=== PATIENT | female | born 1960 | race Caucasian/White ===

== ENCOUNTER 2016-11-19 10:48 | Emergency (ER) | payer BC ==
[~2016-11-19] VITALS: Ht 167.6 cm; Wt 89.0 kg
[~2016-11-19 10:48] MED LIST: ASPI81TA82 PO; ATOR10 PO
[2016-11-19 10:53] VITALS: BP 130/86; PULSE 110; RESP 16; TEMP 98.1; O2SAT 96
[2016-11-19] MEDS ORDERED: ASPI325T PO (11:05)
[2016-11-19 11:27] LABS: BLOOD, URINE TRACE (NEG); GLUCOSE,URINE NEG (NEG); KETONE, URINE NEG (NEG); METHOD OF COLLECTION CLEAN CATCH; NITRITE,URINE NEG (NEG); URINE COLOR YELLOW (YELLW/STRAW)
[2016-11-19 11:31] LABS: COMMENT (UR) CULT NOT INDICATED; CULTURE IF INDICATED CULT NOT INDICATED; SQUAMOUS EPITHELIAL CELL URINE 0-5 /hpf (0-5); WBC, URINE 0-2 /hpf (0-5)
[2016-11-19] MEDS ORDERED: MECL-62 PO (11:44)
[2016-11-19] MEDS ORDERED: ZOFR4TAB PO (11:44)
--- NOTE | 2016-11-19 11:44 | PD ---
HPI Chief Complaint: Abdominal Pain Time Seen by Provider: 11:15 Travel History International Travel<30 days: No Contact w/Intl Traveler<30days: No Traveled to known affect area: No History of Present Illness HPI Patient presents with complaints of dizziness. States that for the last 3 nights she is sitting and watching TV when she started to feel a little lightheaded she then goes to lay down and throws up and then feels fine. Does not occur during the day. Denies any urinary or bowel symptoms. Denies any room spinning with head movement. Denies any fever. PFSH Past Medical History Hx Anticoagulant Therapy: Yes (81 MG ASA) Arthritis: No Asthma: No Autoimmune Disease: No Heart Rhythm Problems: No Cancer: No Cardiovascular Problems: Yes (STENT) Chest Pain: Yes (09/08) Congestive Heart Failure: No COPD: No Cerebrovascular Accident: No Diabetes: No Diminished Hearing: No Endocrine: No Genitourinary: No Immune Disorder: No Musculoskeletal: No Neurologic: No Psychiatric: No Reproductive: No Respiratory: No Migraines: No Seizures: No Sleep Apnea: No Thyroid Disease: No Past Surgical History Abdominal Surgery: No AICD: No Arteriovenous Shunt: No Cardiac Surgery: Yes (LAD stent) Ear Surgery: No Endocrine Surgery: No Eye Surgery: No Genitourinary Surgery: No Gynecologic Surgery: Yes (hysterectomy) Hysterectomy: Yes Insulin Pump: No Joint Replacement: No Oral Surgery: No Pacemaker: No Thoracic Surgery: No Other Surgery: Yes (TUBAL) Social History Alcohol Use: Yes (RARELY) Tobacco Use: Yes Substance Use: No Allergies-Medications (Allergen,Severity, Reaction): Coded Allergies: No Known Allergies (Unverified , 11/19/16) Reported Meds & Prescriptions Reported Meds & Active Scripts Active Reported Aspirin 325 Mg Tab 325 Mg PO DAILY Review of Systems General / Constitutional: No: Fever Eyes: No: Visual changes HENT: No: Headaches Cardiovascular: No: Chest Pain or Discomfort Respiratory: No: Shortness of Breath Gastrointestinal: Positive: Nausea, Vomiting, No: Abdominal Pain Genitourinary: No: Dysuria Musculoskeletal: No: Pain Skin: No Rash Neurologic: No: Weakness Psychiatric: No: Depression Endocrine: No: Polydipsia Hematologic/Lymphatic: No: Easy Bruising Physical Exam Narrative GENERAL: Well-nourished, well-developed patient. SKIN: Focused skin assessment warm/dry. HEAD: Normocephalic. EYES: No scleral icterus. No injection or drainage. NECK: Supple, trachea midline. No JVD or lymphadenopathy. CARDIOVASCULAR: Regular rate and rhythm without murmurs, gallops, or rubs. RESPIRATORY: Breath sounds equal bilaterally. No accessory muscle use. GASTROINTESTINAL: Abdomen soft, non-tender, nondistended. MUSCULOSKELETAL: No cyanosis, or edema. BACK: Nontender without obvious deformity. No CVA tenderness. Data Data Last Documented VS Vital Signs Date Time Temp Pulse Resp B/P Pulse Ox O2 Delivery O2 Flow Rate FiO2 11/19/16 10:53 98.1 110 16 130/86 96 Orders Urinalysis - C+S If Indicated (11/19/16 11:15) Complete Blood Count With Diff (11/19/16 11:34) Comprehensive Metabolic Panel (11/19/16 11:34) Lipase (11/19/16 11:34) Lactic Acid (11/19/16 11:34) Ct Abd/Pel W Iv Contrast(Rout) (11/19/16 11:34) Iv Access Insert/Monitor (11/19/16 11:34) Ecg Monitoring (11/19/16 11:34) Oximetry (11/19/16 11:34) NPO (11/19/16 11:34) Ondansetron Inj (Zofran Inj) (11/19/16 11:45) Sodium Chloride 0.9% Flush (Ns Flush) (11/19/16 11:45) Labs Laboratory Tests Test 11/19/16 11:15 Urine Collection Type CLEAN CATCH Urine Color YELLOW Urine Turbidity CLEAR Urine pH 6.0 Urine Specific [place] 1.019 Urine Protein NEG mg/dL Urine Glucose (UA) NEG mg/dL Urine Ketones NEG mg/dL Urine Occult Blood TRACE Urine Nitrite NEG Urine Bilirubin NEG Urine Leukocyte Esterase NEG Urine WBC 0-2 /hpf Urine Squamous Epithelial 0-5 /hpf Cells Urine Amorphous Sediment FEW Microscopic Urinalysis Comment CULT NOT INDICATED MDM Medical Decision Making Medical Screen Exam Complete: Yes Emergency Medical Condition: Yes Differential Diagnosis Vertigo, gastritis, reflux, hypoglycemia Narrative Course Assessment and plan discussed with patient and partner at bedside. EKG normal sinus rhythm. Diagnosis Primary Impression: Vertigo Patient Instructions: General Instructions Additional Instructions: Encouraged a bland BRAT diet. Encourage good fluid intake. Follow-up with PCP Med/Other Pt SpecificInfo: Prescription(s) given Scripts Ondansetron (Zofran)4 Mg Tab4 Mg PO Q12HR PRN (NAUSEA OR VOMITING) #10 TAB Ref 0 Prov:Jovanny Cherry MD 11/19/16 Meclizine 25 Mg Tab25 Mg PO DIRECTED PRN (VERTIGO) #20 TAB Ref 0 Prov:Jovanny Cherry MD 11/19/16 Disposition: 01 DISCHARGE HOME Condition: Good Jovanny Cherry MD Nov 19, 2016 11:44
[2016-11-19] MEDS ORDERED: ONDANSETRON HCL 4 MG/2 ML VIAL IVP ONE (11:45)
[2016-11-19] MEDS ORDERED: SODIUM CHLORIDE 0.9% FLUSH 10 ML FLUSH IV FLUSH PRN (11:45)
[2016-11-19 11:51] VITALS: O2SAT 96
[2016-11-19 11:54] VITALS: BP 108/71; PULSE 83; RESP 20; O2SAT 98
--- NOTE | 2016-11-19 11:54 | PD ---
HPI Chief Complaint: Abdominal Pain Time Seen by Provider: 11:15 Travel History International Travel<30 days: No Contact w/Intl Traveler<30days: No Traveled to known affect area: No History of Present Illness HPI Patient presents with complaints of right lower abdominal pain intermittent over the last week. Pain varies from a 5-8 out of 10. Episodes last for 15-20 minutes. Occur randomly. Denies any nausea vomiting diarrhea or fever. States that the symptoms improved with urination. History of complete hysterectomy. Reports normal stools and normal urination. PFSH Past Medical History Hx Anticoagulant Therapy: Yes (81 MG ASA) Arthritis: No Asthma: No Autoimmune Disease: No Heart Rhythm Problems: No Cancer: No Cardiovascular Problems: Yes (STENT) Chest Pain: Yes (09/08) Congestive Heart Failure: No COPD: No Cerebrovascular Accident: No Diabetes: No Diminished Hearing: No Endocrine: No Genitourinary: No Immune Disorder: No Musculoskeletal: No Neurologic: No Psychiatric: No Reproductive: No Respiratory: No Migraines: No Seizures: No Sleep Apnea: No Thyroid Disease: No Past Surgical History Abdominal Surgery: No AICD: No Arteriovenous Shunt: No Cardiac Surgery: Yes (LAD stent) Ear Surgery: No Endocrine Surgery: No Eye Surgery: No Genitourinary Surgery: No Gynecologic Surgery: Yes (hysterectomy) Hysterectomy: Yes Insulin Pump: No Joint Replacement: No Oral Surgery: No Pacemaker: No Thoracic Surgery: No Other Surgery: Yes (TUBAL) Social History Alcohol Use: Yes (RARELY) Tobacco Use: Yes Substance Use: No Allergies-Medications (Allergen,Severity, Reaction): Coded Allergies: No Known Allergies (Unverified , 11/19/16) Reported Meds & Prescriptions Reported Meds & Active Scripts Active Zofran (Ondansetron HCl) 4 Mg Tab 4 Mg PO Q12HR PRN Meclizine (Meclizine HCl) 25 Mg Tab 25 Mg PO DIRECTED PRN Reported Aspirin 325 Mg Tab 325 Mg PO DAILY Review of Systems General / Constitutional: No: Fever Eyes: No: Visual changes HENT: No: Headaches Cardiovascular: No: Chest Pain or Discomfort Respiratory: No: Shortness of Breath Gastrointestinal: Positive: Abdominal Pain Genitourinary: No: Dysuria Musculoskeletal: No: Pain Skin: No Rash Neurologic: No: Weakness Psychiatric: No: Depression Endocrine: No: Polydipsia Hematologic/Lymphatic: No: Easy Bruising Physical Exam Narrative GENERAL: Well-nourished, well-developed patient. SKIN: Focused skin assessment warm/dry. HEAD: Normocephalic. EYES: No scleral icterus. No injection or drainage. NECK: Supple, trachea midline. No JVD or lymphadenopathy. CARDIOVASCULAR: Regular rate and rhythm without murmurs, gallops, or rubs. RESPIRATORY: Breath sounds equal bilaterally. No accessory muscle use. GASTROINTESTINAL: Abdomen soft, tender right lower quadrant, nondistended. MUSCULOSKELETAL: No cyanosis, or edema. BACK: Nontender without obvious deformity. No CVA tenderness. Data Data Last Documented VS Vital Signs Date Time Temp Pulse Resp B/P Pulse Ox O2 Delivery O2 Flow Rate FiO2 11/19/16 11:54 83 20 108/71 98 11/19/16 10:53 98.1 Orders Urinalysis - C+S If Indicated (11/19/16 11:15) Complete Blood Count With Diff (11/19/16 11:34) Comprehensive Metabolic Panel (11/19/16 11:34) Lipase (11/19/16 11:34) Lactic Acid (11/19/16 11:34) Ct Abd/Pel W Iv Contrast(Rout) (11/19/16 11:34) Iv Access Insert/Monitor (11/19/16 11:34) Ecg Monitoring (11/19/16 11:34) Oximetry (11/19/16 11:34) NPO (11/19/16 11:34) Ondansetron Inj (Zofran Inj) (11/19/16 11:45) Sodium Chloride 0.9% Flush (Ns Flush) (11/19/16 11:45) Iohexol 350 Inj (Omnipaque 350 Inj) (11/19/16 12:05) Labs Laboratory Tests Test 11/19/16 11/19/16 11:15 11:40 Urine Collection Type CLEAN CATCH Urine Color YELLOW Urine Turbidity CLEAR Urine pH 6.0 Urine Specific [place] 1.019 Urine Protein NEG mg/dL Urine Glucose (UA) NEG mg/dL Urine Ketones NEG mg/dL Urine Occult Blood TRACE Urine Nitrite NEG Urine Bilirubin NEG Urine Leukocyte Esterase NEG Urine WBC 0-2 /hpf Urine Squamous Epithelial 0-5 /hpf Cells Urine Amorphous Sediment FEW Microscopic Urinalysis Comment CULT NOT INDICATED White Blood Count 7.4 TH/MM3 Red Blood Count 4.60 MIL/MM3 Hemoglobin 14.3 GM/DL Hematocrit 42.3 % Mean Corpuscular Volume 91.8 FL Mean Corpuscular Hemoglobin 31.1 PG Mean Corpuscular Hemoglobin 33.8 % Concent Red Cell Distribution Width 12.5 % Platelet Count 234 TH/MM3 Mean Platelet Volume 8.7 FL Neutrophils (%) (Auto) 52.4 % Lymphocytes (%) (Auto) 36.2 % Monocytes (%) (Auto) 4.6 % Eosinophils (%) (Auto) 4.9 % Basophils (%) (Auto) 1.9 % Neutrophils # (Auto) 3.9 TH/MM3 Lymphocytes # (Auto) 2.7 TH/MM3 Monocytes # (Auto) 0.3 TH/MM3 Eosinophils # (Auto) 0.4 TH/MM3 Basophils # (Auto) 0.1 TH/MM3 CBC Comment DIFF FINAL Differential Comment Sodium Level 143 MEQ/L Potassium Level 4.0 MEQ/L Chloride Level 108 MEQ/L Carbon Dioxide Level 28.2 MEQ/L Anion Gap 7 MEQ/L Blood Urea Nitrogen 12 MG/DL Creatinine 0.63 MG/DL Estimat Glomerular Filtration 97 ML/MIN Rate Random Glucose 116 MG/DL Lactic Acid Level 1.3 mmol/L Calcium Level 8.8 MG/DL Total Bilirubin 0.3 MG/DL Aspartate Amino Transf 17 U/L (AST/SGOT) Alanine Aminotransferase 25 U/L (ALT/SGPT) Alkaline Phosphatase 32 U/L Total Protein 7.0 GM/DL Albumin 3.4 GM/DL Lipase 130 U/L MDM Medical Decision Making Medical Screen Exam Complete: Yes Emergency Medical Condition: Yes Differential Diagnosis Appendicitis, adhesions, urinary tract infection, nephrolithiasis Narrative Course Assessment and plan discussed with patient at bedside Last 72 hours Impressions Abdomen/Pelvis CT 11/19/16 1134 Signed Impressions: Service Date/Time: Saturday, November 19, 2016 11:55 - CONCLUSION: 1. Possible right lower quadrant pain is not seen. 2. Multiple calcifications in the pelvis thought to be related to phleboliths. A definite ureteral stone is not clearly confirmed. There are several calcifications seen around the distal ureters bilaterally. There is no hydronephrosis. No renal stones are seen. Godwin Ojeda MD Diagnosis Primary Impression: Hematuria Additional Impression: Abdominal pain Qualified Code: R10.31 - Right lower quadrant abdominal pain Patient Instructions: General Instructions Additional Instructions: Encourage fluids, encouraged cranberry supplement, follow-up with PCP Med/Other Pt SpecificInfo: Prescription(s) given Scripts Ciprofloxacin (Cipro)500 Mg Xmd563 Mg PO BID 5 Days Ref 0 Prov:Jovanny Cherry MD 11/19/16 Disposition: 01 DISCHARGE HOME Condition: Good Jovanny Cherry MD Nov 19, 2016 11:54
[2016-11-19 11:55] LABS: AUTOMATED NEUTROPHIL # 3.9 TH/MM3 (1.8-7.7); BASOPHIL # 0.1 TH/MM3 (0-0.2); BASOPHIL % 1.9 % (0.0-2.0); EOSINOPHIL # 0.4 TH/MM3 (0-0.4); EOSINOPHIL % 4.9 % (0.0-4.0); HEMATOCRIT 42.3 % (35.0-46.0); HEMO FLAGS DIFF FINAL; LYMPH % 36.2 % (9.0-44.0); LYMPHOCYTE # 2.7 TH/MM3 (1.0-4.8); MEAN CELL VOLUME 91.8 FL (80.0-100.0); MEAN CORPUSCULAR HEMOGLOBIN 31.1 PG (27.0-34.0); MEAN CORPUSCULAR HGB CONC 33.8 % (32.0-36.0); MONO % 4.6 % (0.0-8.0); NEUT % 52.4 % (16.0-70.0); PLATELET COUNT 234 TH/MM3 (150-450); RED CELL DISTRIBUTION WIDTH 12.5 % (11.6-17.2); WHITE BLOOD COUNT 7.4 TH/MM3 (4.0-11.0)
[2016-11-19 12:03] LABS: CHLORIDE 108 MEQ/L (98-107); SODIUM (NA) 143 MEQ/L (136-145)
[2016-11-19] MEDS ORDERED: IOHEXOL 350 MG/ML 10 ML VIAL (for RAD DIAG) IV ONE (12:05)
[2016-11-19 12:07] LABS: ANION GAP 7 MEQ/L (5-15); BICARBONATE 28.2 MEQ/L (21.0-32.0); BLOOD UREA NITROGEN 12 MG/DL (7-18)
[2016-11-19 12:10] LABS: ALT (GPT) 25 U/L (10-53); AST (GOT) 17 U/L (15-37); GLOMERULAR FILTRATION RATE 97 ML/MIN (>89)
[2016-11-19 12:11] LABS: TOTAL BILIRUBIN ADULT 0.3 MG/DL (0.2-1.0)
[2016-11-19 12:13] LABS: ALKALINE PHOSPHATASE 32 U/L (45-117)
--- NOTE | 2016-11-19 12:56 | RADHPO ---
EXAM DATE/TIME: 11/19/2016 11:55 [facility] COMPARISON: No previous studies available for comparison. INDICATIONS : Intermittent right lower quadrant pain for two weeks. IV CONTRAST: 95 cc Omnipaque 350 (iohexol) IV ORAL CONTRAST: No oral contrast ingested. RADIATION DOSE: 19.49 CTDIvol (mGy) MEDICAL HISTORY : Cardiovascular disease Anticoagulant therapy. SURGICAL HISTORY : Tubal ligation. Hysterectomy.Coronary artery stent. ENCOUNTER: Initial ACUITY: 2 weeks PAIN SCALE: 5/10 LOCATION: Right lower quadrant TECHNIQUE: Volumetric scanning of the abdomen and pelvis was performed. Using automated exposure control and ad justment of the mA and/or kV according to patient size, radiation dose was kept as low as reasonably achievable to obtain optimal diagnostic quality images. FINDINGS: LOWER LUNGS: The visualized lower lungs are clear. LIVER: Homogeneous density without lesion. There is no dilation of the biliary tree. No calcified gallston es. SPLEEN: Normal size without lesion. PANCREAS: Within normal limits. KIDNEYS: Normal in size and shape. There is no mass, renal stone or hydronephrosis. There are several calcifi cations in the pelvis likely related to phleboliths. A definite ureteral stone is not clearly seen al though several calcifications are seen in close proximity to the expected location of the distal uret ers. The ureters do not appear distended. ADRENAL GLANDS: Within normal limits. VASCULAR: There is no aortic aneurysm. BOWEL/MESENTERY: The stomach, small bowel, and colon demonstrate no acute abnormality. There is no free intraperitone al air or fluid. The cecum and terminal ileum appear normal. The appendix is not seen. Significant in flammatory change is not seen. ABDOMINAL WALL: Within normal limits. RETROPERITONEUM: There is no lymphadenopathy. BLADDER: No wall thickening or mass. REPRODUCTIVE: The patient is status post hysterectomy. INGUINAL: There is no lymphadenopathy or hernia. MUSCULOSKELETAL: There is degenerative change of the lumbar spine. CONCLUSION: 1. Possible right lower quadrant pain is not seen. 2. Multiple calcifications in the pelvis thought to be related to phleboliths. A definite ureteral st one is not clearly confirmed. There are several calcifications seen around the distal ureters bilater ally. There is no hydronephrosis. No renal stones are seen. Godwin Ojeda MD on November 19, 2016 at 12:48 Board Certified Radiologist. This report was verified electronically.
[2016-11-19] MEDS ORDERED: CIPR-9 PO (13:11)
[2016-11-19 13:22] VITALS: BP 108/71
== END 2016-11-19 13:27 | disposition home or self-care (01) ==
LOC: PHED 10:48
DX: R10.31 Right lower quadrant pain (principal); R31.9 Hematuria, unspecified; Z79.82 Long term (current) use of aspirin; Z95.5 Presence of coronary angioplasty implant and graft; Z72.0 Tobacco use
CPT/HCPCS: 74177; 80053; 81001; 83605; 83690; 85025; 96374; 99284; J2405; Q9967

== ENCOUNTER 2016-12-31 12:24 | Emergency (ER) | payer BC ==
[~2016-12-31] VITALS: Ht 167.6 cm; Wt 87.0 kg
[~2016-12-31 12:24] MED LIST changes: +ASPI325T PO; -ASPI81TA82 PO; -ATOR10 PO; +CIPR-9 PO
[2016-12-31 12:31] VITALS: BP 138/94; PULSE 105; RESP 18; TEMP 98.2; O2SAT 96
--- NOTE | 2016-12-31 12:41 | PD ---
HPI Chief Complaint: Musculoskeletal Complaint Time Seen by Provider: 12:39 Travel History International Travel<30 days: No Contact w/Intl Traveler<30days: No Traveled to known affect area: No History of Present Illness HPI SLIPPED AND FELL BACKWARDS TO AVOID HITTING HER HEAD, SHE PLACED HER RIGHT ARM BACKWARDS TO BRACE HER FALL...SINCE THEN RIGHT WRIST PAIN PFSH Past Medical History Hx Anticoagulant Therapy: Yes (aspirin) Arthritis: No Asthma: No Autoimmune Disease: No Heart Rhythm Problems: No Cancer: No Cardiovascular Problems: Yes (stent) Chest Pain: Yes (09/08) Congestive Heart Failure: No COPD: No Cerebrovascular Accident: No Diabetes: No Diminished Hearing: No Endocrine: No Genitourinary: No Immune Disorder: No Musculoskeletal: No Neurologic: No Psychiatric: No Reproductive: No Respiratory: No Migraines: No Seizures: No Sleep Apnea: No Thyroid Disease: No ?: Not Past Surgical History Abdominal Surgery: No AICD: No Arteriovenous Shunt: No Cardiac Surgery: Yes (LAD stent) Ear Surgery: No Endocrine Surgery: No Eye Surgery: No Genitourinary Surgery: No Gynecologic Surgery: Yes (hysterectomy) Hysterectomy: Yes Insulin Pump: No Joint Replacement: No Oral Surgery: No Pacemaker: No Thoracic Surgery: No Other Surgery: Yes (TUBAL) Social History Alcohol Use: Yes (RARELY) Tobacco Use: Yes Substance Use: No Allergies-Medications (Allergen,Severity, Reaction): Coded Allergies: No Known Allergies (Unverified , 12/31/16) Reported Meds & Prescriptions Reported Meds & Active Scripts Active Reported Aspirin 325 Mg Tab 325 Mg PO DAILY Review of Systems Except as stated in HPI: all other systems reviewed are Neg Musculoskeletal: Positive: Limited ROM, Pain (RIGHT WRIST PAIN SINCE [facility] ) Physical Exam Narrative GENERAL: SKIN: Warm and dry. HEAD: Atraumatic. Normocephalic. EYES: Pupils equal and round. No scleral icterus. No injection or drainage. ENT: No nasal bleeding or discharge. Mucous membranes pink and moist. NECK: Trachea midline. No JVD. CARDIOVASCULAR: Regular rate and rhythm. RESPIRATORY: No accessory muscle use. Clear to auscultation. Breath sounds equal bilaterally. GASTROINTESTINAL: Abdomen soft, non-tender, nondistended. Hepatic and splenic margins not palpable. MUSCULOSKELETAL: Extremities without clubbing, cyanosis, or edema. MINIMAL EDEMA AND TTP TO RIGHT WRIST, NO HUMERUS/SHOULDER/ELBOW INVOLVEMENT NEUROLOGICAL: Awake and alert. No obvious cranial nerve deficits. Motor grossly within normal limits. Five out of 5 muscle strength in the arms and legs. Normal speech. PSYCHIATRIC: Appropriate mood and affect; insight and judgment normal. Data Data Last Documented VS Vital Signs Date Time Temp Pulse Resp B/P Pulse Ox O2 Delivery O2 Flow Rate FiO2 12/31/16 12:31 98.2 105 18 138/94 96 Orders Wrist, Complete ([id number]) (12/31/16 ) [facility] Medical Decision Making Medical Screen Exam Complete: Yes Emergency Medical Condition: Yes Medical Record Reviewed: Yes Differential Diagnosis FX VS CONTUSION Narrative Course SEE ABOVE Diagnosis Primary Impression: Distal radius fracture, right Qualified Code: S52.591A - Other closed fracture of distal end of right radius , initial encounter Referrals: Bennett Jang MD FOR FURTHER CARE OF YOUR DISTAL RADIUS FRACTURE Scripts Oxycodone-Acetaminophen (Percocet)5-325 mg Tab1 Tab PO Q4H PRN (PAIN) #28 TAB Ref 0 Prov:Kaveh Currie MD 12/31/16 Disposition: 01 DISCHARGE HOME Condition: Stable Kaveh Currie MD Dec 31, 2016 12:41
[2016-12-31] MEDS ORDERED: PERC5TAB12 PO (13:39)
[2016-12-31] MEDS ORDERED: oxyCODONE/ACETAMINOPHEN 5 MG/325 MG TAB PO ONE (13:45)
--- NOTE | 2016-12-31 14:00 | RADHPO ---
EXAM DATE/TIME: 12/31/2016 13:09 [facility] COMPARISON: No previous studies available for comparison. INDICATIONS : Fell of right wrist today MEDICAL HISTORY : None. SURGICAL HISTORY : None. ENCOUNTER: Initial ACUITY: 1 day PAIN SCORE: 9/10 LOCATION: Right wrist FINDINGS: 3 views right wrist. Fracture of the distal radius involving the radial styloid and extending into th e radiocarpal joint. Mildly comminuted. Minimally displaced. CONCLUSION: Mild comminuted distal radius fracture involving the radial styloid and extending into the radiocarpa l joint. Kirit Jessica MD on December 31, 2016 at 13:58 Board Certified Radiologist. This report was verified electronically.
== END 2016-12-31 14:25 | disposition home or self-care (01) ==
LOC: PHED 12:24
DX: S52.591A Other fractures of lower end of right radius, initial encounter for closed fracture (principal); Z72.0 Tobacco use; Z79.82 Long term (current) use of aspirin; Z86.79 Personal history of other diseases of the circulatory system; W01.0XXA Fall on same level from slipping, tripping and stumbling without subsequent striking against object, initial encounter
CPT/HCPCS: 29125; 73110

== ENCOUNTER 2017-08-31 10:50 | Emergency (ER) | payer BC ==
[~2017-08-31] VITALS: Ht 167.6 cm; Wt 89.1 kg
[~2017-08-31 10:50] MED LIST changes: +ASPI-183 PO; -ASPI325T PO; -CIPR-9 PO; +PERC5TAB12 PO
[2017-08-31 11:05] VITALS: BP 147/78; PULSE 89; RESP 18; TEMP 97.9; O2SAT 97
[2017-08-31] MEDS ORDERED: ASPI-516 CHEW (11:14)
--- NOTE | 2017-08-31 11:17 | RADRPT ---
EXAM DATE/TIME: 08/31/2017 11:02 [facility] COMPARISON: CHEST SINGLE AP, April 21, 2016, 12:56. INDICATIONS : Chest pain MEDICAL HISTORY : Cardiovascular disease Anticoagulant therapy. SURGICAL HISTORY : Tubal ligation. Hysterectomy.Coronary artery stent ENCOUNTER: Initial ACUITY: 1 day PAIN SCORE: 10/10 LOCATION: Right chest FINDINGS: A single view of the chest demonstrates the lungs to be symmetrically aerated without evidence of mas s, infiltrate or effusion. There is mild atelectasis at the lung bases. The cardiomediastinal contou rs are unremarkable. Osseous structures are intact. CONCLUSION: Mild atelectasis at the lung bases with no consolidation or effusion. Azeem Villagomez MD on August 31, 2017 at 11:13 Board Certified Radiologist. This report was verified electronically.
[2017-08-31 11:22] LABS: CHLORIDE 104 MEQ/L (98-107); SODIUM (NA) 137 MEQ/L (136-145)
[2017-08-31 11:25] LABS: CALCIUM 8.9 MG/DL (8.5-10.1); GLUCOSE,RANDOM 100 MG/DL (74-106)
[2017-08-31 11:26] LABS: BLOOD UREA NITROGEN 10 MG/DL (7-18)
[2017-08-31 11:27] LABS: BASOPHIL # 0.4 TH/MM3 (0-0.2); BASOPHIL % 3.4 % (0.0-2.0); EOSINOPHIL # 0.3 TH/MM3 (0-0.4); EOSINOPHIL % 2.4 % (0.0-4.0); HEMATOCRIT 45.7 % (35.0-46.0); HEMOGLOBIN 15.8 GM/DL (11.6-15.3); LYMPH % 22.8 % (9.0-44.0); LYMPHOCYTE # 2.8 TH/MM3 (1.0-4.8); MEAN CORPUSCULAR HEMOGLOBIN 31.7 PG (27.0-34.0); MEAN CORPUSCULAR HGB CONC 34.5 % (32.0-36.0); MEAN PLATELET VOLUME 8.8 FL (7.0-11.0); MONO % 5.6 % (0.0-8.0); MONOCYTE # 0.7 TH/MM3 (0-0.9); NEUT % 65.8 % (16.0-70.0); PLATELET COUNT 253 TH/MM3 (150-450); RED BLOOD COUNT 4.96 MIL/MM3 (4.00-5.30); RED CELL DISTRIBUTION WIDTH 12.9 % (11.6-17.2); WHITE BLOOD COUNT 12.2 TH/MM3 (4.0-11.0)
[2017-08-31 11:29] LABS: CREATININE 0.65 MG/DL (0.50-1.00); GLOMERULAR FILTRATION RATE 93 ML/MIN (>89)
[2017-08-31 11:33] LABS: TROPONIN I LESS THAN 0.02 NG/ML (0.02-0.05)
--- NOTE | 2017-08-31 11:42 | PD ---
HPI . Chest pain Chief Complaint: Chest Pain Time Seen by Provider: 11:09 Travel History International Travel<30 days: No Contact w/Intl Traveler<30days: No Traveled to known affect area: No History of Present Illness HPI Patient presents with a chief complaint of chest pain. Onset was last night. It is right-sided chest pain that radiates to the right arm. She describes a constant pain in her chest. She states that her arm feels like needles poking it. She states she has had a previous OH and the pain that she is experiencing now is different from the pain when she had the MRI. Her pain is exacerbated by breathing. It is NOT associated with shortness of breath, diaphoresis or nausea. Pain is rated 8/10. PFSH Past Medical History Hx Anticoagulant Therapy: Yes (aspirin) Arthritis: No Asthma: No Autoimmune Disease: No Heart Rhythm Problems: No Cancer: No Cardiac Catheterization: Yes Cardiovascular Problems: Yes (stent) Chest Pain: Yes (09/08) Congestive Heart Failure: No COPD: No Cerebrovascular Accident: No Coronary Artery Disease: Yes Diabetes: No Diminished Hearing: No Endocrine: No Genitourinary: No Immune Disorder: No Implanted Vascular Access Dvce: No Musculoskeletal: No Neurologic: No Psychiatric: No Reproductive: No Respiratory: No Migraines: No Myocardial Infarction: Yes Seizures: No Sleep Apnea: No Thyroid Disease: No Tetanus Vaccination: > 5 Years Influenza Vaccination: No ?: Not Past Surgical History Abdominal Surgery: No AICD: No Arteriovenous Shunt: No Cardiac Surgery: Yes (LAD stent) Coronary Stent: Yes Ear Surgery: No Endocrine Surgery: No Eye Surgery: No Genitourinary Surgery: No Gynecologic Surgery: Yes (hysterectomy) Hysterectomy: Yes Insulin Pump: No Joint Replacement: No Oral Surgery: No Pacemaker: No Thoracic Surgery: No Other Surgery: Yes (TUBAL) Social History Alcohol Use: No Tobacco Use: Yes (08/02 ppd) Substance Use: No Allergies-Medications (Allergen,Severity, Reaction): Coded Allergies: No Known Allergies (Unverified Adverse Reaction, Unknown, 08/31/17) Reported Meds & Prescriptions Reported Meds & Active Scripts Active Ultram (Tramadol HCl) 50 Mg Tab 50 Mg PO Q4H PRN Nabumetone 500 Mg Tab 500 Mg PO BID Reported Aspirin 81 Mg Chew 81 Mg CHEW DAILY Review of Systems Except as stated in HPI: all other systems reviewed are Neg General / Constitutional: No: Fever, Chills Cardiovascular: Positive: Chest Pain or Discomfort Respiratory: No: Cough, Shortness of Breath Gastrointestinal: No: Nausea, Vomiting Musculoskeletal: Positive: Myalgias Neurologic: Positive: Paresthesia, No: Weakness, Dizziness, Syncope Physical Exam Narrative GENERAL: Awake and alert and in no acute distress. SKIN: warm/dry. Color and turgor. HEAD: Normocephalic. Atraumatic. EYES: Pupils equal and round. No scleral icterus. No injection or drainage. ENT: No nasal bleeding or discharge. Mucous membranes pink and moist. NECK: Trachea midline. Full range of motion without pain.. CARDIOVASCULAR: Regular rate and rhythm. Heart sounds normal. RESPIRATORY: No accessory muscle use. Clear to auscultation. Breath sounds equal bilaterally. Positive right sided chest wall tenderness. GASTROINTESTINAL: Abdomen soft. Nontender. Bowel sounds present. Nondistended. MUSCULOSKELETAL: No obvious deformities. NEUROLOGICAL: Awake and alert. No obvious cranial nerve deficits. Motor grossly within normal limits. Normal speech. PSYCHIATRIC: Appropriate mood and affect; insight and judgment normal. Data Data Last Documented VS Vital Signs Date Time Temp Pulse Resp B/P (MAP) Pulse Ox O2 Delivery O2 Flow Rate FiO2 08/31/17 11:12 (101) 08/31/17 11:05 Room Air 08/31/17 11:05 97 08/31/17 11:05 97.9 89 18 Orders Orders Electrocardiogram (08/31/17 10:58) Complete Blood Count With Diff (08/31/17 10:58) Basic Metabolic Panel (Bmp) (08/31/17 10:58) Ckmb (Isoenzyme) Profile (08/31/17 10:58) Troponin I (08/31/17 10:58) Chest, Single Ap (08/31/17 10:58) Iv Access Insert/Monitor (08/31/17 10:58) Ecg Monitoring (08/31/17 10:58) Oxygen Administration (08/31/17 10:58) Oximetry (08/31/17 10:58) D-Dimer (08/31/17 11:15) Labs Laboratory Tests Test 08/31/17 11:00 White Blood Count 12.2 TH/MM3 Red Blood Count 4.96 MIL/MM3 Hemoglobin 15.8 GM/DL Hematocrit 45.7 % Mean Corpuscular Volume 92.0 FL Mean Corpuscular Hemoglobin 31.7 PG Mean Corpuscular Hemoglobin Concent 34.5 % Red Cell Distribution Width 12.9 % Platelet Count 253 TH/MM3 Mean Platelet Volume 8.8 FL Neutrophils (%) (Auto) 65.8 % Lymphocytes (%) (Auto) 22.8 % Monocytes (%) (Auto) 5.6 % Eosinophils (%) (Auto) 2.4 % Basophils (%) (Auto) 3.4 % Neutrophils # (Auto) 8.0 TH/MM3 Lymphocytes # (Auto) 2.8 TH/MM3 Monocytes # (Auto) 0.7 TH/MM3 Eosinophils # (Auto) 0.3 TH/MM3 Basophils # (Auto) 0.4 TH/MM3 CBC Comment DIFF FINAL Differential Comment D-Dimer Quantitative (PE/DVT) 0.47 MG/L FEU Blood Urea Nitrogen 10 MG/DL Creatinine 0.65 MG/DL Random Glucose 100 MG/DL Calcium Level 8.9 MG/DL Sodium Level 137 MEQ/L Potassium Level 4.0 MEQ/L Chloride Level 104 MEQ/L Carbon Dioxide Level 28.0 MEQ/L Anion Gap 5 MEQ/L Estimat Glomerular Filtration Rate 93 ML/MIN Total Creatine Kinase 47 U/L Troponin I LESS THAN 0.02 NG/ML Exceptions Acute Myocardial Infarction ASA Not Given on Arrival: Already taken by patient MDM Medical Decision Making Medical Screen Exam Complete: Yes Emergency Medical Condition: Yes Medical Record Reviewed: Yes (Admitted to the chest pain center in March 2016. Lexiscan stress test produced symptoms of cardiac ischemia but she had no EKG changes. The myocardial perfusion scan was negative.) Interpretation(s) EKG shows a normal sinus rhythm with no acute ischemic changes. Differential Diagnosis Differential diagnosis of chest pain includes but is not limited to musculoskeletal pain, pulmonary embolism, acute coronary syndrome, pneumonia, pleurisy Narrative Course Patient presents complaining with right-sided chest pain. The pain is most likely musculoskeletal based upon her physical exam. She will be checked for ACS, pneumonia, pneumothorax, pulmonary embolism. Disposition will be based upon the findings of these studies. CBC & BMP Diagram 08/31/17 11:00 Calcium Level 8.9 trop < 0.02 D-dimer 0.47 Last Impressions Chest X-Ray 08/31/17 1058 Signed Impressions: Service Date/Time: Thursday, August 31, 2017 11:02 - CONCLUSION: Mild atelectasis at the lung bases with no consolidation or effusion. Azeem Villagomez MD Chest x-ray was independently reviewed by me. The history, exam, diagnostic testing, and current condition do not suggest any significant pathology to warrant further testing, continued ED treatment, admission, or surgical evaluation at this point. No EMC was found. The patient 's condition is stable and appropriate for discharge. She will be treated for chest wall pain. Diagnosis Primary Impression: Chest wall pain Patient Instructions: Chest Wall Pain (ED), General Instructions Med/Other Pt SpecificInfo: Prescription(s) given Scripts Tramadol (Ultram) 50 Mg Tab 50 MG PO Q4H Y for PAIN, #12 TAB 0 Refills Prov: Sherrie Savage MD 08/31/17 Nabumetone (Nabumetone) 500 Mg Tab 500 MG PO BID for Pain-Inflammation, #60 TAB 0 Refills Prov: Sherrie Savage MD 08/31/17 Disposition: 01 DISCHARGE HOME Condition: Stable Sherrie Savage MD Aug 31, 2017 11:42
[2017-08-31] MEDS ORDERED: TRAM50 PO (12:10)
[2017-08-31] MEDS ORDERED: NABU1TAB37 PO (12:10)
[2017-08-31 13:12] VITALS: BP 133/92; PULSE 90; RESP 16; O2SAT 97
--- NOTE | 2017-08-31 21:53 | EKG ---
Date Performed: 08/31/2017 Time Performed: 10:59:09 PTAGE: 57 years EKG: Sinus rhythm POSSIBLE RIGHT VENTRICULAR CONDUCTION DELAY Compared to previous tracing R wave progression improved BORDERLINE ECG PREVIOUS TRACING : 04/21/2016 19.46 DOCTOR: Dorian Vega Interpretating Date/Time 08/31/2017 21:51:57
== END 2017-08-31 13:26 | disposition home or self-care (01) ==
LOC: PHED 10:50
DX: R07.89 Other chest pain (principal); F17.200 Nicotine dependence, unspecified, uncomplicated; I25.2 Old myocardial infarction; I25.10 Atherosclerotic heart disease of native coronary artery without angina pectoris
CPT/HCPCS: 71045; 80048; 82550; 84484; 85025; 85379; 93005; 99285